=== PATIENT | female | born 1995 | race Two or more races ===

== ENCOUNTER 2018-08-22 13:28 | Outpatient (CLI) | payer OTHER ==
[2018-08-23] MEDS ORDERED: ADDERAL20 MG ORAL (13:25)
[2018-08-23] MEDS ORDERED: OMEPRAZOLE40 M1 ORAL (13:25)
--- NOTE | 2018-08-23 13:51 | Consultation ---
DATE OF CONSULTATION: 08/22/2018 CONSULTING PHYSICIAN: Zeyad Ward M.D. CHIEF COMPLAINT: Chronic GERD. HISTORY OF PRESENT ILLNESS: This is a very pleasant 23-year-old [place] female without any significant past medical history except for history of chronic cough, was also seen by ENT doctor. It seemed that the patient had a laryngoscopy and she has severe acid reflux. She was given omeprazole once a day without any significant improvement. The patient was referred to us for evaluation. PAST MEDICAL HISTORY: GERD. PAST SURGICAL HISTORY: Nose surgery. ALLERGIES: No known drug allergies. MEDICATIONS: Omeprazole. FAMILY HISTORY: Significant for history of diabetes and thyroid disease. SOCIAL HISTORY: The patient denies any tobacco, alcohol, or IV drug abuse. REVIEW OF SYSTEMS: A 10-point review of systems was performed and pertinent positives in HPI. PHYSICAL EXAMINATION: VITAL SIGNS: Stable. The patient is afebrile. HEENT: Normocephalic and atraumatic. Sclerae are anicteric. NECK: Supple. No obvious evidence of lymphadenopathy. CARDIOVASCULAR: Regular rate and rhythm. Plus S1 and S2. No obvious murmur. LUNGS: Clear to auscultation bilaterally. ABDOMEN: Positive bowel sounds. Soft and nontender. No rebound. No guarding. No peritoneal sign. EXTREMITIES: No cyanosis. No clubbing. No edema. ASSESSMENT AND PLAN: The patient is a 23-year-old female with chronic GERD with evidence of inflammation based on the ENT note. Our plan will be to increase the omeprazole to 40 mg twice a day, one before breakfast and one before dinner. The patient was also given a prescription for VSL#3 to be taken for complaint of constant bad smell in her mouth. We are going to also need to schedule the patient for an endoscopy given her age of 23 and persistent acid reflux, not responding to PPI daily. The patient was given again prescription for omeprazole and VSL#3 today and we are going to try to get authorization from insurance for an endoscopy. Zeyad Ward M.D. DR: SONJA JOB#: [id number] CC:
== END 2018-08-22 15:58 | disposition home or self-care (01) ==
LOC: PAN 13:28
DX: K21.9 Gastro-esophageal reflux disease without esophagitis (principal)

== ENCOUNTER 2018-10-03 13:03 | Outpatient (CLI) | payer OTHER ==
[~2018-10-03 13:03] MED LIST: ADDERAL20 MG ORAL; OMEPRAZOLE40 M1 ORAL
[2018-10-03] MEDS ORDERED: VSL#3 PACKET1 EAC1 PO (13:23)
--- NOTE | 2018-10-03 14:01 | General Progress Note ---
Assessment/Plan Problem List: (1) GERD (gastroesophageal reflux disease) ICD Codes: K21.9 - Gastro-esophageal reflux disease without esophagitis SNOMED: [id number] Assessment/Plan: PPI BID add baclofen pending EGD authorization Subjective ROS Limited/Unobtainable: Yes Allergies: Coded Allergies: No Known Allergies (Unverified , 08/23/18) Objective General Appearance: alert EENT: normal ENT inspection Neck: supple Cardiovascular: normal rate Respiratory/Chest: lungs clear Abdomen: normal bowel sounds, non tender, soft Extremities: non-tender Zeyad Ward MD October 03, 2018 14:01
[2018-10-03 15:47] VITALS: BP 128/75
== END 2018-10-03 15:00 | disposition home or self-care (01) ==
LOC: PAN 13:03
DX: K21.9 Gastro-esophageal reflux disease without esophagitis (principal)
CPT/HCPCS: 99212